=== PATIENT | male | born 1985 | race Hispanic/Latino ===

== ENCOUNTER 2024-09-07 19:05 | Emergency (ER) | payer OTHER ==
[2024-09-07] MEDS ORDERED: Fluorescein Opthalmic Strip ONE (19:17)
[2024-09-07] MEDS ORDERED: Proparacaine 0.5% Opth 15 ML BOT ONE (19:17)
== END 2024-09-07 21:20 ==
LOC: ERS 19:05 → EEVIPCON 19:05 → ERS 21:20
DX: S01.112A Laceration without foreign body of left eyelid and periocular area, initial encounter (principal); S09.90XA Unspecified injury of head, initial encounter; S80.812A Abrasion, left lower leg, initial encounter; H20.9 Unspecified iridocyclitis; I10 Essential (primary) hypertension; W22.8XXA Striking against or struck by other objects, initial encounter
CPT/HCPCS: 12011; 70450; 70486; 72125